=== PATIENT | female | born 1935 | race Caucasian/White ===

== ENCOUNTER 2018-11-17 13:22 | Emergency (ER) | payer OTHER ==
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
[2018-11-17] MEDS ORDERED: TDAP ADULT 0.5 ML INJ (BOOSTRIX) IM ONE (14:11)
[2018-11-17 15:13] VITALS: BP 142/106
== END 2018-11-17 14:56 | disposition home or self-care (01) ==
LOC: CED 13:22
PROC: 0H9GXZZ Drainage of Left Hand Skin, External Approach (ICD-10-PCS; principal; 2018-11-17)
DX: T23.232A Burn of second degree of multiple left fingers (nail), not including thumb, initial encounter (principal); Z23 Encounter for immunization; X19.XXXA Contact with other heat and hot substances, initial encounter; Y93.G3 Activity, cooking and baking
CPT/HCPCS: 90471-ER; 99283-ER